=== PATIENT | male | born 1970 | race Caucasian/White ===

== ENCOUNTER 2025-04-29 16:06 | Emergency (ER) | payer MEDICAID, OTHER ==
[~2025-04-29] VITALS: Ht 172.7 cm; Wt 81.8 kg
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
[2025-04-29] MEDS: diazePAM 5 MG TAB PO ONE (16:48)
[2025-04-29 16:49] VITALS: BP 108/67; PULSE 92; RESP 18; TEMP 99.4; O2SAT 94
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
== END 2025-04-29 19:35 | disposition home or self-care (01) ==
LOC: EDBD 16:06 → ER 16:19
DX: M54.6 Pain in thoracic spine (principal); G89.29 Other chronic pain; Z88.0 Allergy status to penicillin; V89.2XXA Person injured in unspecified motor-vehicle accident, traffic, initial encounter; Y93.89 Activity, other specified; Y92.488 Other paved roadways as the place of occurrence of the external cause; Y99.8 Other external cause status
CPT/HCPCS: 72070